=== PATIENT | female | born 1955 | race Caucasian/White ===

== ENCOUNTER 2018-04-30 11:33 | Inpatient (IN) | payer OTHER ==
[2018-04-30 12:37] VITALS: BMI 21.9
--- NOTE | 2018-04-30 15:42 | HP ---
COWS - Scale Resting Pulse: 0= [place] 80 or Below Sweatin= Chills/Flushing Restless Observation: 1= Difficult to Sit Still Pupil Size: 1= Pupils >than Normal Bone or Joint Aches: 2= Severe Diffuse Aches Runny Nose/ Eye Tearin= Runny Nose/Eyes GI Upset > 30mins: 2= Nausea/Diarrhea Tremor Observation: 2= Slight Tremor Visible Yawning Observation: 2= >3x During Session Anxiety or Irritability: 2=Irritable/Anxious Goose Flesh Skin: 0=Smooth Skin COWS Score: 15 CIWA Score - Admission Criteria OASAS Guidelines: Admission for Medically Managed Detox: Requires at least one of the followin. CIWA greater than 12 2. Seizures within the past 24 hours 3. Delirium tremens within the past 24 hours 4. Hallucinations within the past 24 hours 5. Acute intervention needed for co occurring medical disorder 6. Acute intervention needed for co occurring psychiatric disorder 7. Severe withdrawal that cannot be handled at a lower level of care (continued vomiting, continued diarrhea, abnormal vital signs) requiring intravenous medication and/or fluids 8. Admission ROS S - HPI Chief Complaint: i need help to stop using heroin,alcohol abused Allergies/Adverse Reactions: Allergies Allergy/AdvReac Type Severity Reaction Status Date / Time No Known Allergies Allergy Verified 04/30/18 14:52 History of Present Illness: this 62 years old female with heroin dependence,alcohol abused,withdrawal symptom,seeking detox,last detox in 1979 in [facility] history of hypercholesterolemia history of bipolar disorder ,anxiety and depression weight loss nicotine dependence longest period sobriety 25 years plan to visit granddaughter in [place] Exam Limitations: No Limitations - Ebola screening Have you traveled outside of the country in the last 21 days: No Have you had contact with anyone from an Ebola affected area: No Have you been sick,other than usual withdrawal symptoms: No - Review of Systems Constitutional: Chills, Loss of Appetite, Malaise, Night Sweats, Changes in sleep, Weakness, Unintentional Wgt. Loss EENT: reports: Tearing, Nose Congestion Respiratory: reports: No Symptoms reported Cardiac: reports: No Symptoms Reported GI: reports: Nausea, Poor Appetite, Abdominal cramping Musculoskeletal: reports: Back Pain, Muscle Pain Integumentary: reports: Dryness Neuro: reports: Headache, Tremors Endocrine: reports: No Symptoms Reported Hematology: reports: No Symptoms Reported Psychiatric: reports: No Sypmtoms Reported, Judgement Intact, Mood/Affect Appropiate, Orientated x3, other (bipolar disorder,insomnia,anxiety,depression) Patient History - Patient Medical History Hx Asthma: Yes (on albuterol inhaler) Hx Chronic Obstructive Pulmonary Disease (COPD): No Hx Cancer: No Hx Cardiac Disorders: No Hx Hypertension: No Hx Hypercholesterolemia: No Hx Pacemaker: No HX Cerebrovascular Accident: No Hx Seizures: No Hx Diabetes: No Hx Gastrointestinal Disorders: Yes (acid reflux) Hx Liver Disease: No Hx Genitourinary Disorders: No Hx Sexually Transmitted Disorders: No Hx Renal Disease (ESRD): No Hx Thyroid Disease: No Hx Human Immunodeficiency Virus (HIV): No (last 1987 negative) Hx Hepatitis C: No Hx Depression: Yes Hx Suicide Attempt: Yes (pill overdose at age 25) Hx Bipolar Disorder: Yes Hx Schizophrenia: No Other Medical History: no sucidal,no homicidal - Patient Surgical History Past Surgical History: Yes Hx Neurologic Surgery: No Hx Cataract Extraction: No Hx Cardiac Surgery: No Hx Lung Surgery: No Hx Breast Surgery: No Hx Breast Biopsy: No Hx Abdominal Surgery: No Hx Appendectomy: No Hx Cholecystectomy: No Hx Genitourinary Surgery: No Hx Section: No Hx Orthopedic Surgery: Yes (fx, left knee replacement in 2013 (fall)) Anesthesia Reaction: No - PPD History Previous Implant?: Yes Documented Results: Negative w/o proof Implanted On Prior R Admission?: No PPD to be Administered?: Yes - Reproductive History Patient is a Female of Child Bearing Age (11 -55 yrs old): No Patient : No - Smoking Cessation Smoking history: Current every day smoker Have you smoked in the past 12 months: Yes Aproximately how many cigarettes per day: 20 Hx Chewing Tobacco Use: No Initiated information on smoking cessation: Yes 'Breaking Loose' booklet given: 04/30/18 - Substance & Tx. History Hx Alcohol Use: Yes Hx Substance Use: Yes Substance Use Type: Alcohol, Heroin Hx Substance Use [place]: [place] - Substances Abused Heroin Route: Inhalation Frequency: Daily Amount used: 3 bags Age of first use: 16 Date of Last Use: 04/30/18 Alcohol-rum/tequila Route: Oral Frequency: 1-3 times last 30 days Amount used: 3 shots Age of first use: 17 Date of Last Use: 04/27/18 Family Disease History - Family Disease History Family Disease History: Other: Father, Mother, Brother (dsa,alcohol,sober) Admission Physical Exam [facility] - Vital Signs Vital Signs: Vital Signs - 24 hr 04/30/18 12:35 Temperature 96.6 F L Pulse Rate 56 L Respiratory 17 Rate Blood Pressure 128/79 - Physical General Appearance: Yes: Moderate Distress, Tremorous, Irritable, Sweating, Anxious HEENTM: Yes: Normal ENT Inspection, MATEO, Pharynx Normal Respiratory: Yes: Lungs Clear, Normal Breath Sounds, No Respiratory Distress Neck: Yes: Within Normal Limits, Supple, Trachea in good position Breast: Yes: Breast Exam Deferred Cardiology: Yes: Within Normal Limits, Regular Rhythm, Regular Rate, S1, S2 Abdominal: Yes: Within Normal Limits, Normal Bowel Sounds, Non Tender, Soft Genitourinary: Yes: Within Normal Limits Back: Yes: Muscle Spasm Musculoskeletal: Yes: Within Normal Limits, Back pain, Muscle Pain Extremities: Yes: Normal Inspection, Normal Range of Motion, Tremors Neurological: Yes: administrator of home health II-XII NML intact, Fully Oriented, Alert, Motor Strength 5/5 Integumentary: Yes: Dry Lymphatic: Yes: Within Normal Limits - Diagnostic (1) Opioid dependence with withdrawal Current Visit: Yes Status: Acute (2) Alcohol abuse Current Visit: Yes Status: Acute (3) Weight loss Current Visit: Yes Status: Acute (4) Bipolar disorder Current Visit: Yes Status: Acute (5) Nicotine dependence Current Visit: Yes Status: Acute (6) Anxiety and depression Current Visit: Yes Status: Acute (7) History of left knee replacement Current Visit: Yes Status: Acute Cleared for Admission [facility] - Detox or Rehab [facility] Level of Care: Medically Managed Detox Regimen/Protocol: Methadone [facility] Breath Alcohol Content Breath Alcohol Content: 0 Urine Pregancy Test - Result Urine Test Results: Negative- NO Line Present Urine Drug Screen - Results Drug Screen Negative: No Urine Drug Screen Results: OPI-Opiates, FEN-Fentanyl
[2018-04-30] MEDS ORDERED: ACETAMINOPHEN 325 MG TABLET (FP) PO PRN (15:53)
[2018-04-30] MEDS ORDERED: MAG HYDROX/AL HYDROX/SIMETH 30 ML UNIT-DOSE CUP PO PRN (15:53)
[2018-04-30] MEDS ORDERED: MAGNESIUM CITRATE 300 ML BOTTLE PO PRN (15:53)
[2018-04-30] MEDS ORDERED: LOPERAMIDE HCL 2 MG CAPSULE PO PRN (15:53)
[2018-04-30] MEDS ORDERED: MENTHOL/PHENOL 1 EACH UD MM PRN (15:53)
[2018-04-30] MEDS ORDERED: MAGNESIUM HYDROX 2400MG/30ML ORAL SUSPENSION 30 ML CUP PO PRN (15:53)
[2018-04-30] MEDS ORDERED: guaiFENesin/D-METHORPHAN HB 10 ML UNIT-DOSE CUPS PO PRN (15:53)
[2018-04-30] MEDS ORDERED: METHADONE HCL 10 MG TABLET (FOR DETOX USE ONLY) PO ONE ×2 (16:30→23:00)
[2018-04-30] MEDS: diazePAM 5 MG TABLET PO PRN (17:39)
[2018-04-30] MEDS: hydrOXYzine PAMOATE 25 MG CAPSULE (FP) PO PRN (22:33)
[2018-04-30] MEDS: THIAMINE HCL 100 MG TABLET (FP) PO SCH (22:33)
[2018-04-30] MEDS: MELATONIN 5 MG TABLETS PO PRN (22:34)
[2018-04-30] MEDS: IBUPROFEN 400 MG TABLET (FP) PO PRN (22:35)
[2018-05-01] MEDS: P-EPHED 60MG/TRIPROLIDI 2.5MG TABLET PO PRN ×2 (03:23→17:05)
[2018-05-01] MEDS: diazePAM 5 MG TABLET PO PRN ×2 (05:57→22:15)
[2018-05-01 09:59] LABS: HEMOGLOBIN 11.1 GM/dL (10.7-15.3); MCH 30.5 pg (25.7-33.7); MCHC 32.6 g/dl (32.0-36.0); MEAN CELL VOLUME 93.5 fl (80-96); MEAN PLT VOLUME 8.5 fl (7.5-11.1); PLATELET COUNT 253 K/MM3 (134-434); RBC 3.64 M/mm3 (3.60-5.2); RDW 14.2 % (11.6-15.6); WHITE BLOOD COUNT 6.6 K/mm3 (4.0-10.0)
[2018-05-01] MEDS ORDERED: METHADONE HCL 10 MG TABLET (FOR DETOX USE ONLY) PO ONE (10:00)
[2018-05-01 10:24] LABS: ALBUMIN 3.1 g/dl (3.4-5.0); ALK PHOS 62 U/L (45-117); ANION GAP 8 MMOL/L (8-16); BILIRUBIN,TOTAL 0.1 mg/dL (0.2-1); BLOOD UREA NITROGEN 21 mg/dL (7-18); CALCIUM 8.6 mg/dL (8.5-10.1); CHLORIDE 105 mmol/L (98-107); CO2 28 mmol/L (21-32); CREATININE 0.7 mg/dL (0.55-1.3); GLUCOSE,RANDOM 97 mg/dL (74-106); POTASSIUM 4.6 mmol/L (3.5-5.1); SGOT/AST 13 U/L (15-37); SGPT/ALT 20 U/L (13-61); SODIUM 141 mmol/L (136-145); TOT PROT 6.5 g/dl (6.4-8.2)
--- NOTE | 2018-05-01 10:47 | PN ---
[facility] COWS - Scale Resting Pulse: 0= [place] 80 or Below Sweatin=Flushed/Facial Moisture Restless Observation: 1= Difficult to Sit Still Pupil Size: 0= Normal to Room Light Bone or Joint Aches: 2= Severe Diffuse Aches Runny Nose/ Eye Tearin= Runny Nose/Eyes GI Upset > 30mins: 1= Stomach Cramp Tremor Observation of Outstretched Hands: 2= Slight Tremor Visible Yawning Observation: 1= 1-2x During Session Anxiety or Irritability: 2=Irritable/Anxious Goose Flesh Skin: 3=Piloerection COWS Score: 16 S Progress Note (SOAP) Subjective: interrupted sleep agitation nasal congestion body aches sweats stomach cramping Objective: 05/01/18 10:46 Vital Signs Temperature 96.6 F L 05/01/18 09:21 Pulse Rate 59 L 05/01/18 09:21 Respiratory Rate 16 05/01/18 09:21 Blood Pressure 97/59 L 05/01/18 09:21 O2 Sat by Pulse Oximetry (%) Laboratory Tests 05/01/18 05/01/18 07:00 07:00 WBC 6.6 RBC 3.64 Hgb 11.1 Hct 34.0 MCV 93.5 MCH 30.5 MCHC 32.6 RDW 14.2 Plt Count 253 MPV 8.5 Sodium 141 Potassium 4.6 Chloride 105 Carbon Dioxide 28 Anion Gap 8 BUN 21 H Creatinine 0.7 Creat Clearance w eGFR > 60 Random Glucose 97 Calcium 8.6 Total Bilirubin 0.1 L AST 13 L ALT 20 Alkaline Phosphatase 62 Total Protein 6.5 Albumin 3.1 L rest of labs pending aaox3 ambulating no acute distress Assessment: 05/01/18 10:47 withdrawal sx Plan: continue detox increase fluids flonase nasal spray MOM prn
[2018-05-01] MEDS: PRENATAL VITAMINS W/ FOLIC ACID TABLET (FP) PO SCH (10:48)
[2018-05-01 10:49] LABS: SICKLE CELL SCREEN NEGATIVE (NEGATIVE)
[2018-05-01] MEDS: NICOTINE 21 MG/24 HOURS TOPICAL PATCH TD SCH (10:49)
[2018-05-01] MEDS: FLUTICASONE PROP 0.05% 16 GM NASAL SPRAY NS SCH ×2 (11:45→22:16)
[2018-05-01] MEDS: guaiFENesin 600 MG TABLET.ER (FP) PO SCH ×2 (14:55→22:15)
[2018-05-01] MEDS: IBUPROFEN 400 MG TABLET (FP) PO PRN ×2 (15:02→22:16)
[2018-05-01] MEDS: hydrOXYzine PAMOATE 25 MG CAPSULE (FP) PO PRN ×2 (15:02→22:15)
[2018-05-01] MEDS: THIAMINE HCL 100 MG TABLET (FP) PO SCH (22:15)
[2018-05-01] MEDS: MELATONIN 5 MG TABLETS PO PRN (22:17)
[2018-05-02] MEDS: diazePAM 5 MG TABLET PO PRN ×2 (06:52→22:32)
[2018-05-02] MEDS ORDERED: METHADONE HCL 5 MG TABLET (FOR DETOX USE ONLY) PO ONE (10:00)
[2018-05-02] MEDS: PRENATAL VITAMINS W/ FOLIC ACID TABLET (FP) PO SCH (10:05)
[2018-05-02] MEDS: guaiFENesin 600 MG TABLET.ER (FP) PO SCH ×2 (10:05→22:33)
[2018-05-02] MEDS: FLUTICASONE PROP 0.05% 16 GM NASAL SPRAY NS SCH ×2 (10:06→22:31)
[2018-05-02] MEDS: NICOTINE 21 MG/24 HOURS TOPICAL PATCH TD SCH (10:07)
--- NOTE | 2018-05-02 10:42 | PN ---
[facility] COWS - Scale Resting Pulse: 0= [place] 80 or Below Sweatin=Flushed/Facial Moisture Restless Observation: 1= Difficult to Sit Still Pupil Size: 0= Normal to Room Light Bone or Joint Aches: 2= Severe Diffuse Aches Runny Nose/ Eye Tearin= Nasal Congestion GI Upset > 30mins: 0= None Tremor Observation of Outstretched Hands: 2= Slight Tremor Visible Yawning Observation: 1= 1-2x During Session Anxiety or Irritability: 2=Irritable/Anxious Goose Flesh Skin: 0=Smooth Skin COWS Score: 11 S Progress Note (SOAP) Subjective: nasal congestion sweats anxiety Objective: 05/02/18 10:41 Vital Signs Temperature 96.3 F L 05/02/18 09:53 Pulse Rate 76 05/02/18 09:53 Respiratory Rate 18 05/02/18 09:53 Blood Pressure 108/85 05/02/18 09:53 O2 Sat by Pulse Oximetry (%) Laboratory Tests 05/01/18 05/01/18 05/01/18 07:00 07:00 07:00 WBC 6.6 RBC 3.64 Hgb 11.1 Hct 34.0 MCV 93.5 MCH 30.5 MCHC 32.6 RDW 14.2 Plt Count 253 MPV 8.5 Sickle Cell Screen Negative Sodium 141 Potassium 4.6 Chloride 105 Carbon Dioxide 28 Anion Gap 8 BUN 21 H Creatinine 0.7 Creat Clearance w eGFR > 60 Random Glucose 97 Calcium 8.6 Total Bilirubin 0.1 L AST 13 L ALT 20 Alkaline Phosphatase 62 Total Protein 6.5 Albumin 3.1 L RPR Titer HIV 1&2 Antibody Screen Negative HIV P24 Antigen Negative 05/01/18 07:00 WBC RBC Hgb Hct MCV MCH MCHC RDW Plt Count MPV Sickle Cell Screen Sodium Potassium Chloride Carbon Dioxide Anion Gap BUN Creatinine Creat Clearance w eGFR Random Glucose Calcium Total Bilirubin AST ALT Alkaline Phosphatase Total Protein Albumin RPR Titer Nonreactive HIV 1&2 Antibody Screen HIV P24 Antigen aaox3 ambulating no acute distress Assessment: 05/02/18 10:41 withdrawal sx Plan: continue detox increase fluids
[2018-05-02] MEDS: IBUPROFEN 400 MG TABLET (FP) PO PRN (15:42)
--- NOTE | 2018-05-02 15:45 | EKG ---
Test Reason : Blood Pressure : / mmHG Vent. Rate : 050 BPM Atrial Rate : 050 BPM P-R Int : 168 ms QRS Dur : 084 ms QT Int : 462 ms P-R-T Axes : 062 048 042 degrees QTc Int : 421 ms SINUS BRADYCARDIA OTHERWISE NORMAL ECG NO PREVIOUS ECGS AVAILABLE Confirmed by JAXON BYRNE, MARY KAY ([id number]) on 05/02/2018 3:44:57 PM Referred By: Confirmed By:MARY KAY COATES MD
[2018-05-02] MEDS: hydrOXYzine PAMOATE 25 MG CAPSULE (FP) PO PRN (22:31)
[2018-05-02] MEDS: THIAMINE HCL 100 MG TABLET (FP) PO SCH (22:33)
[2018-05-03] MEDS: NICOTINE POLACRILEX 2 MG GUM BC PRN ×4 (05:59→17:36)
[2018-05-03] MEDS: diazePAM 5 MG TABLET PO PRN (06:00)
[2018-05-03] MEDS ORDERED: METHADONE HCL 5 MG TABLET (FOR DETOX USE ONLY) PO ONE (10:00)
[2018-05-03] MEDS: PRENATAL VITAMINS W/ FOLIC ACID TABLET (FP) PO SCH (10:39)
[2018-05-03] MEDS: NICOTINE 21 MG/24 HOURS TOPICAL PATCH TD SCH (10:40)
[2018-05-03] MEDS: guaiFENesin 600 MG TABLET.ER (FP) PO SCH ×2 (10:40→22:01)
[2018-05-03] MEDS: FLUTICASONE PROP 0.05% 16 GM NASAL SPRAY NS SCH ×2 (10:40→22:00)
--- NOTE | 2018-05-03 11:11 | PN ---
[facility] Progress Note (SOAP) Subjective: feeling better sweats anxiety Objective: 05/03/18 11:10 Vital Signs Temperature 97.2 F L 05/03/18 09:05 Pulse Rate 55 L 05/03/18 09:05 Respiratory Rate 16 05/03/18 09:05 Blood Pressure 111/69 05/03/18 09:05 O2 Sat by Pulse Oximetry (%) aaox3 ambulating no acute distress Assessment: 05/03/18 11:11 withdrawal sx Plan: continue detox increase fluids
--- NOTE | 2018-05-03 13:45 | CONSULT ---
[facility] Psychiatric Consult - Data Date of interview: 05/03/18 Admission source: [facility] Identifying data: This is a 62 years old female, mothe of one, single, domiciled, on SSI sup[port, with psychiatric hospitalization history, with heroin, alcohol, nicotine dependence, reporting withdrawal symptoms and seeking detox, Substance Abuse History: Smoking history: Current every day smoker. Have you smoked in the past 12 months: Yes. Aproximately how many cigarettes per day: 20. Hx Chewing Tobacco Use: No. Initiated information on smoking cessation: Yes. 'Breaking Loose' booklet given: 04/30/18. - Substance & Tx. History. Hx Alcohol Use: Yes. Hx Substance Use: Yes. Substance Use Type: Alcohol, Heroin. Hx Substance Use Treatment: Yes ([place] city[place] - Substances Abused. Heroin. Route: Inhalation. Frequency: Daily. Amount used: 3 bags. Age of first use: 16. Date of Last Use: 04/30/18. Alcohol-rum/tequila. Route: Oral. Frequency: 1-3 times last 30 days. Amount used: 3 shots. Age of first use: 17. Date of Last Use: 04/27/18 Medical History: Weight loss history, L.Knee rep[lacaement history, Psychiatric History: Patient reports history of depression and anxiety, reports history of psychiatric hospitalization on nabout more then 10 years ago after OD attempt with suicidal ideation, reportsa no suicidal, homicidal history since then. Currently on Lexapro 20mg poqd Physical/Sexual Abuse/Trauma History: Denies Additional Comment: Lexapro 20mg poqd Mental Status Exam - Mental Status Exam Alert and Oriented to: Place, Person Cognitive Function: Fair Patient Appearance: Well Groomed Mood: Apprehensive Affect: Mood Congruent Patient Behavior: Cooperative Speech Pattern: Appropriate Voice Loudness: Mildly Soft/Quiet Thought Process: Goal Oriented Thought Disorder: Being Controlled Hallucinations: Denies Suicidal Ideation: Denies Homicidal Ideation: Denies Insight/Judgement: Fair Sleep: Difficulty falling asleep Appetite: Weight loss Muscle strength/Tone: Mild Hypotonicity Gait/Station: Deferred Additional Comments: Lexapro 20mg poqd Psychiatric Findings - Problem List ([place] 1, 2,3) (1) Alcohol abuse Current Visit: Yes Status: Acute (2) Anxiety and depression Current Visit: Yes Status: Acute (3) Bipolar disorder Current Visit: Yes Status: Acute Qualifiers: Current bipolar episode type: mixed (4) Nicotine dependence Current Visit: Yes Status: Acute Qualifiers: Nicotine product type: cigarettes Substance use status: uncomplicated Qualified Code(s): F17.210 - Nicotine dependence, cigarettes, uncomplicated (5) Opioid dependence with withdrawal Current Visit: Yes Status: Chronic - Initial Treatment Plan Initial Treatment Plan: Lexapro 20mg poqd
[2018-05-03] MEDS: ESCITALOPRAM OXALATE 20 MG TABLET (FP) PO SCH (14:45)
[2018-05-03] MEDS: DOCUSATE SODIUM 100 MG CAPSULE (FP) PO SCH ×2 (14:45→22:00)
[2018-05-03] MEDS: THIAMINE HCL 100 MG TABLET (FP) PO SCH (22:00)
[2018-05-03] MEDS: MELATONIN 5 MG TABLETS PO PRN (22:00)
[2018-05-03] MEDS: IBUPROFEN 400 MG TABLET (FP) PO PRN (22:01)
[2018-05-03] MEDS: hydrOXYzine PAMOATE 25 MG CAPSULE (FP) PO PRN (22:02)
[2018-05-04] MEDS: DOCUSATE SODIUM 100 MG CAPSULE (FP) PO SCH ×3 (05:21→22:15)
[2018-05-04] MEDS ORDERED: METHADONE HCL 10 MG TABLET (FOR DETOX USE ONLY) PO ONE (10:00)
[2018-05-04] MEDS: FLUTICASONE PROP 0.05% 16 GM NASAL SPRAY NS SCH ×2 (10:04→22:15)
[2018-05-04] MEDS: NICOTINE 21 MG/24 HOURS TOPICAL PATCH TD SCH (10:05)
[2018-05-04] MEDS: ESCITALOPRAM OXALATE 20 MG TABLET (FP) PO SCH (10:05)
[2018-05-04] MEDS: guaiFENesin 600 MG TABLET.ER (FP) PO SCH ×2 (10:05→22:15)
[2018-05-04] MEDS: PRENATAL VITAMINS W/ FOLIC ACID TABLET (FP) PO SCH (10:05)
[2018-05-04] MEDS: NICOTINE POLACRILEX 2 MG GUM BC PRN ×2 (10:08→17:10)
--- NOTE | 2018-05-04 11:26 | PN ---
[facility] Progress Note (SOAP) Subjective: feeling better little anxiety Objective: 05/04/18 11:25 Vital Signs Temperature 97.7 F 05/04/18 06:00 Pulse Rate 45 L 05/04/18 06:00 Respiratory Rate 16 05/04/18 06:00 Blood Pressure 123/73 05/04/18 06:00 O2 Sat by Pulse Oximetry (%) aaox3 ambulating no acute distress Assessment: 05/04/18 11:26 mild withdrawal sx Plan: continue detox increase fluids d/c in am
[2018-05-04] MEDS: hydrOXYzine PAMOATE 25 MG CAPSULE (FP) PO PRN ×2 (13:52→22:15)
[2018-05-04] MEDS: IBUPROFEN 400 MG TABLET (FP) PO PRN ×2 (13:53→22:19)
[2018-05-04] MEDS: THIAMINE HCL 100 MG TABLET (FP) PO SCH (22:15)
[2018-05-05] MEDS ORDERED: METHADONE HCL 5 MG TABLET (FOR DETOX USE ONLY) PO ONE (06:00)
[2018-05-05] MEDS: DOCUSATE SODIUM 100 MG CAPSULE (FP) PO SCH (06:13)
[2018-05-05] MEDS: PRENATAL VITAMINS W/ FOLIC ACID TABLET (FP) PO SCH (09:22)
[2018-05-05] MEDS: guaiFENesin 600 MG TABLET.ER (FP) PO SCH (09:22)
[2018-05-05] MEDS: FLUTICASONE PROP 0.05% 16 GM NASAL SPRAY NS SCH (09:22)
[2018-05-05] MEDS: ESCITALOPRAM OXALATE 20 MG TABLET (FP) PO SCH (09:22)
[2018-05-05] MEDS: NICOTINE 21 MG/24 HOURS TOPICAL PATCH TD SCH (09:22)
[2018-05-05 09:29] VITALS: BP 131/94; PULSE 66; TEMP 95.5
--- NOTE | 2018-05-05 14:38 | DS ---
[facility] Detox Discharge Summary Admission Date: 04/30/18 Discharge Date: 05/05/18 - History Present History: Alcohol Dependence, Opioid Dependence Pertinent Past History: Asthma, HLD, bipolar disorder - Physical Exam Results Vital Signs: Vital Signs Temperature 95.5 F L 05/05/18 09:29 Pulse Rate 66 05/05/18 09:29 Respiratory Rate 16 05/05/18 09:29 Blood Pressure 131/94 05/05/18 09:29 O2 Sat by Pulse Oximetry (%) Pertinent Admission Physical Exam Findings: Withdrawal sx Laboratory Last Values WBC 6.6 K/mm3 (4.0-10.0) 05/01/18 07:00 RBC 3.64 M/mm3 (3.60-5.2) 05/01/18 07:00 Hgb 11.1 GM/dL (10.7-15.3) 05/01/18 07:00 Hct 34.0 % (32.4-45.2) 05/01/18 07:00 MCV 93.5 fl (80-96) 05/01/18 07:00 MCH 30.5 pg (25.7-33.7) 05/01/18 07:00 MCHC 32.6 g/dl (32.0-36.0) 05/01/18 07:00 RDW 14.2 % (11.6-15.6) 05/01/18 07:00 Plt Count 253 K/MM3 (134-434) 05/01/18 07:00 MPV 8.5 fl (7.5-11.1) 05/01/18 07:00 Sickle Cell Screen Negative (NEGATIVE) 05/01/18 07:00 Sodium 141 mmol/L (136-145) 05/01/18 07:00 Potassium 4.6 mmol/L (3.5-5.1) 05/01/18 07:00 Chloride 105 mmol/L (98-107) 05/01/18 07:00 Carbon Dioxide 28 mmol/L (21-32) 05/01/18 07:00 Anion Gap 8 MMOL/L (8-16) 05/01/18 07:00 BUN 21 mg/dL (7-18) H 05/01/18 07:00 Creatinine 0.7 mg/dL (0.55-1.3) 05/01/18 07:00 Creat Clearance w eGFR > 60 (>60) 05/01/18 07:00 Random Glucose 97 mg/dL (74-106) 05/01/18 07:00 Calcium 8.6 mg/dL (8.5-10.1) 05/01/18 07:00 Total Bilirubin 0.1 mg/dL (0.2-1) L 05/01/18 07:00 AST 13 U/L (15-37) L 05/01/18 07:00 ALT 20 U/L (13-61) 05/01/18 07:00 Alkaline Phosphatase 62 U/L (45-117) 05/01/18 07:00 Total Protein 6.5 g/dl (6.4-8.2) 05/01/18 07:00 Albumin 3.1 g/dl (3.4-5.0) L 05/01/18 07:00 RPR Titer Nonreactive (NONREACTIVE) 05/01/18 07:00 HIV 1&2 Antibody Screen Negative 05/01/18 07:00 HIV P24 Antigen Negative 05/01/18 07:00 Lab noted - Treatment Hospital Course: Detox Protocol Followed, Detoxed Safely, Responded well, Discharged Condition Good - Medication Discharge Medications: Ambulatory Orders Atorvastatin Ca [Lipitor] 20 mg PO HS 04/30/18 Oxymetazoline HCl [Nasal [place] Sinus] 2 sprays NS TID 04/30/18 Escitalopram Oxalate [Lexapro -] 20 mg PO DAILY #30 tablet 05/03/18 - Diagnosis (1) Alcohol abuse Status: Acute (2) Anxiety and depression Status: Acute (3) Bipolar disorder Status: Acute Qualifiers: Current bipolar episode type: mixed (4) Nicotine dependence Status: Acute Qualifiers: Nicotine product type: cigarettes Substance use status: uncomplicated Qualified Code(s): F17.210 - Nicotine dependence, cigarettes, uncomplicated (5) Opioid dependence with withdrawal Status: Chronic - AMA Did Patient Leave Against Medical Advice: No
== END 2018-05-05 09:25 | disposition home or self-care (01) | DRG 773 ==
LOC: YASAS 11:33 → Y6N 15:49
PROC: HZ2ZZZZ Detoxification Services for Substance Abuse Treatment (ICD-10-PCS; principal; 2018-04-30)
DX: F11.23 Opioid dependence with withdrawal (principal); F10.10 Alcohol abuse, uncomplicated; F31.9 Bipolar disorder, unspecified; F41.8 Other specified anxiety disorders; E78.5 Hyperlipidemia, unspecified; E78.00 Pure hypercholesterolemia, unspecified; J45.909 Unspecified asthma, uncomplicated; J21.9 Acute bronchiolitis, unspecified; R63.4 Abnormal weight loss; Z68.21 Body mass index [BMI] 21.0-21.9, adult; Z96.652 Presence of left artificial knee joint; Z91.5 Personal history of self-harm
CPT/HCPCS: 36415; 80053; 85027; 85660; 86593; 87389; 93005; 93010